=== PATIENT | male | born 1945 | race Caucasian/White ===

== ENCOUNTER 2023-02-07 09:29 | Emergency (ER) | payer MEDICARE, BC ==
[~2023-02-07] VITALS: Ht 182.9 cm; Wt 127.3 kg
[2023-02-07 10:19] LABS: BASOPHILS % (AUTO) 0.3 % (0-1); EOSINOPHILS % (AUTO) 0.1 % (0-6); HEMATOCRIT 39.6 % (42.0-52.0); HEMOGLOBIN 13.4 g/dl (14.0-17.9); LYMPHOCYTES # (AUTO) 0.7 X10'3 (1.1-4.8); LYMPHOCYTES % (AUTO) 8.1 % (21-51); MEAN CORPUSCULAR HEMOGLOBIN 34.3 PG (27.0-31.0); MEAN CORPUSCULAR HGB CONC 33.8 g/dL (33.0-36.5); MEAN CORPUSCULAR VOLUME 101.6 FL (78-98); MONOCYTES # (AUTO) 0.5 X10'3 (0-0.9); MONOCYTES % (AUTO) 5.4 % (2-12); NEUTROPHILS # (AUTO) 7.4 X10'3 (1.8-7.7); NEUTROPHILS % (AUTO) 86.1 % (42-75); PLATELET COUNT 157 X10'3 (140-440); RED CELL DISTRIBUTION WIDTH 13.6 % (11.5-14.5); WHITE BLOOD COUNT 8.6 X10'3 (4.5-11.0)
[2023-02-07 10:31] LABS: ALANINE AMINOTRANSFERASE 19 U/L (12-78); ALBUMIN 3.4 G/DL (3.4-5.0); ALBUMIN/GLOBULIN RATIO 0.9 (1.1-1.5); ALKALINE PHOSPHATASE 57 IU/L (46-116); ANION GAP 11 (8-16); ASPARTATE AMINO TRANSFERASE 19 U/L (10-37); BILIRUBIN,TOTAL 0.9 MG/DL (0.1-1.0); BLOOD UREA NITROGEN 17 MG/DL (7-18); BUN/CREATININE RATIO 17.5 (10.0-20.0); CALCIUM 9.1 MG/DL (8.5-10.1); CHLORIDE 107 MMOL/L (99-107); CREATININE 0.97 MG/DL (0.60-1.10); GLUCOSE 126 MG/DL (70-104); POTASSIUM 3.7 MMOL/L (3.5-5.1); SODIUM 140 MMOL/L (135-145); TOTAL CARBON DIOXIDE 22.2 MMOL/L (24-32); TOTAL PROTEIN 7.1 G/DL (6.4-8.2); eGFR 75 ML/MIN
[2023-02-07] MEDS ORDERED: normal saline 1000ML IV soln IVB ONE ×2 (10:50→13:45)
[2023-02-07] MEDS ORDERED: scopolamine 1.5mg patch.TD72 (72-hour patch) TD ONE (11:30)
[2023-02-07] MEDS ORDERED: scopolamine 1mg/72 hr patch TD ONE (11:30)
[2023-02-07] MEDS ORDERED: ondansetron/PF 4mg/2ml inj IV ONE (11:30)
[2023-02-07 14:23] LABS: COLOR,URINE YELLOW (Yellow); GLUCOSE, URINE 500 mg/dl (Neg); KETONES,URINE 40 mg/dl (Neg); LEUKOCYTE ESTERASE ,URINE NEGATIVE (Neg); NITRITES, URINE NEGATIVE (Neg); OCCULT BLOOD,URINE NEGATIVE (Neg); PH,URINE 5.5 (4.8-8.0); PROTEIN,URINE NEGATIVE (Neg); UROBILINOGEN,URINE 0.2 E.U/dL (0.2-1.0)
[2023-02-07 14:34] LABS: CLARITY,URINE Slightly Cloudy (Clear); UA COLLECTION TYPE CLN CATCH MIDSTREAM
[2023-02-07 14:35] LABS: BACTERIA,URINE 1+ /HPF (Neg); MUCUS STRANDS FEW /LPF (Neg); RBC,URINE NONE SEEN /HPF (0-2); SQUAMOUS EPITHELIAL CELL,UR FEW /LPF (FEW)
[2023-02-07] MEDS ORDERED: cephalexin 500mg capsule PO ONE (14:50)
[2023-02-07] MEDS ORDERED: CEPH500C81 PO (15:17)
--- NOTE | 2023-02-07 15:49 | NUR ---
RN ATTEMPTED TO DISCHARGE PT AND HE STATED THAT HE WAS NOT READY BECAUSE HE IS DIZZY AND MAY NOT BE ABLE TO GET INTO HIS MOTOR HOME. GAIT TEST IN PROGRESS. AWARE.
[2023-02-07] MEDS: diazepam inj 5 MG/ML inj. IV ONE ×2 (16:22→16:49)
[2023-02-07 16:25] VITALS: BP 121/42
[2023-02-07] MEDS ORDERED: diazepam inj 5 MG/ML inj. IV ONE (16:45)
== END 2023-02-07 17:00 | disposition home or self-care (01) ==
LOC: ER 09:30
DX: N30.00 Acute cystitis without hematuria (principal); R42 Dizziness and giddiness; R11.0 Nausea; Z79.899 Other long term (current) drug therapy
CPT/HCPCS: 36415; 71045; 80053; 81001; 83605; 83880; 84484; 85025; 87040; 87088; 93005; 96374; 99285; J3360; J7030; J7040; 96360; 96361